=== PATIENT | male | born 1955 | race Asian ===

== ENCOUNTER 2016-12-06 00:08 | Emergency (ER) | payer BC, OTHER ==
[~2016-12-06] VITALS: Ht 170.2 cm; Wt 66.2 kg
[~2016-12-06 00:08] MED LIST: LEVAQUIN750 MG PO; PREDNISONE20 MG PO; ROBITUSSIN/CODEI5 ML PO
[2016-12-06 00:18] VITALS: BP 138/97
--- NOTE | 2016-12-06 00:29 | NUR ---
AMBULATED TO ER OF1
--- NOTE | 2016-12-06 00:29 | NUR ---
Patient being evaluated by physician.
[2016-12-06] MEDS ORDERED: DEXAMETHASONE 4 MG/ML VIAL PO ONE (00:35)
[2016-12-06] MEDS ORDERED: IPRATROPIUM 0.02% 0.5 MG/2.5 ML NEBU INH ONE ×2 (00:35→01:25)
[2016-12-06] MEDS ORDERED: ALBUTEROL 0.083% 2.5 MG/3 ML NEBU INH ONE ×2 (00:35→01:25)
--- NOTE | 2016-12-06 00:50 | NUR ---
MOVED TO ER BED 7
[2016-12-06] MEDS ORDERED: DEXAMETHASONE 4 MG/ML VIAL ONE (01:04)
--- NOTE | 2016-12-06 01:21 | NUR ---
61Y/M PATIENT PRESENTS TO ED WITH C/O SOB X 2 HRS . PT STATES SOB A FEW HOURS AGO. REPORTS FEVERE YESTERDAY. HX COPD AND ASTHMA . DENIES N/V/D; SKIN IS PINK/WARM/DRY; AAOX4 WITH EVEN AND STEADY GAIT; LUNGS WHEEZE BL; HR EVEN AND REGULAR; PT DENIES ANY FEVER, CP AT THIS TIME; PATIENT STATES PAIN OF 0/10 AT THIS TIME; VSS; PATIENT POSITIONED FOR COMFORT; HOB ELEVATED; BEDRAILS UP X2; BED DOWN. ER MD MADE AWARE OF PT STATUS.
--- NOTE | 2016-12-06 03:10 | NUR ---
Patient discharged with v/s stable. Written and verbal after care instructions given and explained. Patient alert, oriented and verbalized understanding of instructions. Ambulatory with steady gait. All questions addressed prior to discharge. ID band removed. Patient advised to follow up with PMD. Rx of PREDNISONE 20 MG, AZITHROMYCIN 250 MG given. Patient educated on indication of medication including possible reaction and side effects. Opportunity to ask questions provided and answered.
[2016-12-06 03:15] VITALS: BP 134/79
== END 2016-12-06 03:10 | disposition home or self-care (01) ==
LOC: MED 00:08
DX: J40 Bronchitis, not specified as acute or chronic (principal); J44.1 Chronic obstructive pulmonary disease with (acute) exacerbation
CPT/HCPCS: 71010; 93005; 94640; 99284; J1100; J7613; J7644